=== PATIENT | male | born 1990 | race Caucasian/White ===

== ENCOUNTER 2016-10-12 08:37 | Emergency (ER) | payer OTHER | END 2016-10-12 09:30 | disposition home or self-care (01) | DX: S20.212A Contusion of left front wall of thorax, initial encounter (principal); V53.5XXA Driver of pick-up truck or van injured in collision with car, pick-up truck or van in traffic accident, initial encounter; Y92.488 Other paved roadways as the place of occurrence of the external cause; S63.502A Unspecified sprain of left wrist, initial encounter ==

== ENCOUNTER 2016-11-11 03:18 | Emergency (ER) | payer OTHER ==
[2016-11-11] MEDS ORDERED: ONDANSETRON ODT 4 MG TABLET TL STA (03:32)
[2016-11-11] MEDS ORDERED: DICYCLOMINE 10 MG CAPSULE PO STA (03:32)
[2016-11-11] MEDS ORDERED: ONDANSETRON ODT 4 MG TABLET ONE (03:39)
[2016-11-11] MEDS ORDERED: DICYCLOMINE 10 MG CAPSULE PO ONE (03:39)
== END 2016-11-11 03:50 | disposition home or self-care (01) ==
DX: R10.13 Epigastric pain (principal); R11.0 Nausea
CPT/HCPCS: 99283; A9270; Q0162